=== PATIENT | female | born 1965 ===

== ENCOUNTER 2018-07-28 22:13 | Emergency (ER) | payer OTHER ==
[2018-07-29] MEDS ORDERED: NORCO 5/325 PO ONE (03:49)
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
[2018-07-29 06:29] VITALS: BP 111/40
== END 2018-07-29 06:28 | disposition home or self-care (01) ==
LOC: ED 22:13
DX: S16.1XXA Strain of muscle, fascia and tendon at neck level, initial encounter (principal); S20.212A Contusion of left front wall of thorax, initial encounter; S60.212A Contusion of left wrist, initial encounter; V49.49XA Driver injured in collision with other motor vehicles in traffic accident, initial encounter; Y93.89 Activity, other specified; Y92.410 Unspecified street and highway as the place of occurrence of the external cause; Y99.8 Other external cause status
CPT/HCPCS: 71046; 72040; 93005; 93010